=== PATIENT | female | born 1975 | race Caucasian/White ===

== ENCOUNTER 2017-03-08 09:15 | Emergency (ER) | payer OTHER | END 2017-03-08 10:17 | disposition home or self-care (01) | LOC: FER 09:15 | DX: S93.401A Sprain of unspecified ligament of right ankle, initial encounter (principal); I10 Essential (primary) hypertension; F41.9 Anxiety disorder, unspecified; Z79.899 Other long term (current) drug therapy; W19.XXXA Unspecified fall, initial encounter; Y93.01 Activity, walking, marching and hiking; Y92.009 Unspecified place in unspecified non-institutional (private) residence as the place of occurrence of the external cause | CPT/HCPCS: 73610; 73630; 99283 ==

== ENCOUNTER → 2021-01-31 | Day surgery (SDC) | payer OTHER ==
[~2021-01-31] MED LIST: ACETAMINOPHEN-CODEIN PO; ACETAMINOPHEN1 EACH PO; ANTIVERT12.5 MG PO; DIAZEPAM 5MG TAB5 MG PO; NORCO 5-325 TA1 EACH PO; ONDANSETRON ODT8 MG PO; RECTICARE30 GM TOP; VOLTAREN **OUT75 MG PO
[2021-01-31 10:13] LABS: HCT 42.3 % (37.0-47.0); HGB 14.8 g/dl (12.5-16.0); MCH 31.1 pg (25.0-31.0); MCV 88.9 fL (78.0-100.0); RBC 4.76 M/uL (4.20-5.40)
[2021-01-31 10:44] LABS: BILIRUBIN - TOTAL 0.7 mg/dL (0.2-1.0); CREATININE 0.6 mg/dL (0.51-0.95); GLOBULIN (CALCULATION) 3.7 g/dL; POTASSIUM 3.6 mmol/L (3.5-5.1); TOTAL PROTEIN 7.7 g/dL (6.4-8.2)
== END | disposition home or self-care (01) ==
LOC: FAS 08:59
PROVIDERS: Surgery
DX: K64.2 Third degree hemorrhoids (principal); K64.4 Residual hemorrhoidal skin tags; J45.909 Unspecified asthma, uncomplicated; M19.90 Unspecified osteoarthritis, unspecified site; F41.9 Anxiety disorder, unspecified; I10 Essential (primary) hypertension; Z86.39 Personal history of other endocrine, nutritional and metabolic disease; Z20.822 Contact with and (suspected) exposure to COVID-19; Z90.710 Acquired absence of both cervix and uterus; Z82.49 Family history of ischemic heart disease and other diseases of the circulatory system; Z83.3 Family history of diabetes mellitus; Z98.890 Other specified postprocedural states
CPT/HCPCS: 36415; 80053; 93005; 94640; J1100; J2250; J2405; J2704; J3010; J7120

== ENCOUNTER 2021-12-30 13:41 | Emergency (ER) | payer OTHER ==
[2021-12-30 15:09] LABS: BASOPHIL 0.8 % (0-2); HCT 43.6 % (37.0-47.0); LYMPHOCYTE 26.8 % (15-48); MCH 30.2 pg (25.0-31.0); MCHC 34.4 g/dL (32.0-36.0); MCV 87.9 fL (78.0-100.0); MONOCYTE 6.7 % (0-12); MPV 9.9 fL (6.0-9.5); NEUTROPHIL 62.3 % (41-80); NRBC 0; PLT 309 K/uL (150-400); RBC 4.96 M/uL (4.20-5.40); RDW 12.1 % (11.5-14.0); WBC 7.9 K/uL (4.0-10.5)
[2021-12-30 16:01] LABS: BUN/CREAT RATIO (CALC) 19.7 RATIO; CREATININE 0.66 mg/dL (0.51-0.95); POTASSIUM 3.5 mmol/L (3.5-5.1)
== END 2021-12-30 18:00 | disposition home or self-care (01) ==
LOC: FER 13:41
PROVIDERS: Emergency Medicine
DX: H57.02 Anisocoria (principal); T44.3X5A Adverse effect of other parasympatholytics [anticholinergics and antimuscarinics] and spasmolytics, initial encounter
CPT/HCPCS: 36415; 70450; 70551; 80048; 85025; J2060